=== PATIENT | male | born 1980 | race Caucasian/White ===

== ENCOUNTER 2023-12-16 10:57 | Outpatient (CLI) | payer BC, SELFPAY | END 2023-12-16 10:58 | disposition home or self-care (01) | PROVIDERS: PCP Family Medicine; Visit Provider Nurse Practitioner Family | DX: Z11.9 Encounter for screening for infectious and parasitic diseases, unspecified (principal); Z13.1 Encounter for screening for diabetes mellitus; Z13.220 Encounter for screening for lipoid disorders | CPT/HCPCS: 80061; 82947; 86704; 87340 ==

== ENCOUNTER 2024-01-27 20:32 | Emergency (ER) | payer BC, SELFPAY ==
[2024-01-27 20:43] VITALS: BP 126/79; PULSE 75; RESP 18; O2SAT 95; BMI 28.7
--- NOTE | 2024-01-27 22:06 | ED.GENADULT ---
HPI - General Adult General Date Seen: 01/27/24 Chief complaint: Laceration/Wound Stated complaint: Cut face with razor Time Seen by Provider: 01/27/24 20:46 Source: patient Mode of arrival: ambulatory Limitations: no limitations History of Present Illness HPI narrative: Patient is a 43-year-old male, generally healthy aside from rheumatoid arthritis. He notes that he was holding a utility knife near his face, trying to cut a wire. It slipped and he cut his chin on the right side. Believes his tetanus is up-to-date. Feels little numb around the wound but he thinks that is because he has been pressing on it quite hard to stop the bleeding. Related Data Home Medications Medication Instructions Recorded Confirmed folic acid 1 mg tablet 1 mg PO DAILY 12/16/23 12/16/23 hydroxychloroquine 200 mg tablet 200 mg PO BID 12/16/23 12/16/23 methotrexate sodium 2.5 mg tablet 10 mg PO QWEEK 12/16/23 12/16/23 Previous Rx's Medication Instructions Recorded albuterol sulfate 90 mcg/actuation 2 puff inhalation Q4-6H PRN 12/16/23 aerosol inhaler shortness of breath or wheezing #8.5 grams Allergies Allergy/AdvReac Type Severity Reaction Status Date / Time Penicillins Allergy Severe Systemic Verified 12/16/23 10:21 Rash PFSH [facility] Medical History Tobacco use ?Z72.0 - Tobacco use (ICD-10) Surgical History (Updated 12/14/23 @ 16:20 by Alis Grey) History of vasectomy (08/03/17) ?Z98.52 - Vasectomy status (ICD-10) Family History (Updated 12/14/23 @ 16:15 by Alis Grey) Mother Depression Uncle Heart disease High blood pressure Paternal Grandfather CHF (congestive heart failure) Social History Smoking Status: Never smoker Do you use any of these nicotine containing products: None Second hand tobacco smoke exposure: No How often do you have a drink containing alcohol: monthly or less AUDIT-C Alcohol total score: 1 Non-prescribed substance use: denies use Little interest or pleasure in doing things: not at all Feeling down, depressed, or hopeless: not at all service: No Exam Narrative: Exam Narrative: Vital signs as noted above. In general, alert, well-appearing male. ENT: On the chin there is a 3.5 cm laceration which extends deep into the fatty tissues. He has normal facial movement. Venous bleeding noted at the time of my initial exam. Const: Vital Signs, click to edit/add: Vital Signs - 24 hr 01/27/24 20:43 Pulse Rate [Left P ulse Oximeter] 75 Respiratory Rate 18 Blood Pressure [Le ft Upper Arm] 126/79 Pulse Oximetry 95 Oxygen Delivery Me thod Room Air Documenting provider has reviewed patient's vital signs: yes Course Course ED Course: Procedure note: Wound was anesthetized using xylocaine 1% with epinephrine. Explored, I do not see any injury to deeper structure, no foreign body. I initially used [address] 3 deep interrupted sutures to bring the edges together in take tension off the wound. I then placed a total of 11 superficial simple interrupted suture using 5 0 nylon ends. He tolerated this well. No immediate complication. Routine wound care, discussed keeping an ointment on this to help with healing and suture removal. Skin sutures should be removed in about 5-6 days. Return any time for signs of infection. Vital Signs Vital signs: Initial Vital Signs Pulse Rate 75 01/27/24 20:43 Respiratory Rate 18 01/27/24 20:43 Blood Pressure 126/79 01/27/24 20:43 Blood Pressure Mean 94 01/27/24 20:43 Blood Pressure Position Sitting 01/27/24 20:43 Pulse Oximetry 95 01/27/24 20:43 Oxygen Delivery Method Room Air 01/27/24 20:43 Vital Signs Pulse Rate 75 01/27/24 20:43 Respiratory Rate 18 01/27/24 20:43 Blood Pressure 126/79 01/27/24 20:43 Pulse Oximetry 95 01/27/24 20:43 Oxygen Delivery Method Room Air 01/27/24 20:43 Pulse Rate 75 01/27/24 20:43 Respiratory Rate 18 01/27/24 20:43 Blood Pressure 126/79 01/27/24 20:43 Pulse Oximetry 95 01/27/24 20:43 Oxygen Delivery Method Room Air 01/27/24 20:43 Discharge Plan Discharge Clinical Impression: Complex laceration of face Patient Disposition: Home, Self-Care Condition: Improved Instructions: Facial Laceration (ED) Additional Instructions: Removal of 11 superficial stitches in about 5-6 days. Deep stitches will dissolve. Return any time for signs of infection. Keep an ointment such as Vaseline on this several times a day to help keep stitches from getting buried in scab Prescriptions: No Action hydroxychloroquine 200 mg tablet 200 mg PO BID folic acid 1 mg tablet 1 mg PO DAILY methotrexate sodium 2.5 mg tablet 10 mg PO QWEEK albuterol sulfate 90 mcg/actuation HFA aerosol inhaler 2 puff inhalation Q4-6H PRN (Reason: shortness of breath or wheezing) Qty: 8.5 1RF Follow Up/Referrals: Babak Barlow MD [Primary Care Provider] - Stand Alone Forms: [employer] Info Instructions
--- OUTSIDE RECORDS SUMMARY | 2024-01-27 22:15 | XMS_ITS | Clinical Summary ---
Author Name Unknown Organization [facility] Address [address] [place] [id number] Care Team Providers Care Distribution Center Associate Name Role Phone Unavailable Primary Care Provider Unavailabl e Source Comments Patient records contain information from all sites at [facility]. For routine questions regarding patient records, call [phone] during business hours, M-F 8:00 AM - 5:00 PM Central Time. Record requests for emergency care only can be directed to [phone] at any time.[facility] Allergies Active Allergy Reactions Criticality Noted Date Comments Amoxicillin Rash 04/20/2011 Medications Medication Sig Dispensed Refills Start Date End Date Status albuterol (PROVENTIL HFA,VENTOLIN HFA) 90 mcg/actuation inhaler Inhale 1 puff every 4 (four) hours as needed. Shortness of breath. 04/20/2011 Active naproxen sodium (ALEVE ORAL) Take by mouth. Tablet by mouth. 01/26/2014 Active fluticasone propionate (FLOVENT HFA) 44 mcg/actuation inhaler Inhale 1 puff 2 (two) times a day. 04/20/2011 Active cetirizine HCl (ZYRTEC ORAL) Take by mouth as needed. Tablet by mouth. 01/26/2014 Active folic acid 1 mg tabletIndications: Arthritis Rheumatoid (HCC) Take 1 tablet (1 mg total) by mouth daily. 90 tablet 3 04/22/2023 04/21/2024 Active hydrOXYchloroQUINE (PLAQUENIL) 200 mg tabletIndications: Arthritis Rheumatoid (HCC) Take 2 tablets (400 mg total) by mouth daily. remember to do yearly eye exam. 180 tablet 3 04/22/2023 04/21/2024 Active methotrexate 2.5 mg tabletIndications: Arthritis Rheumatoid (HCC) Take 10 tablets (25 mg total) by mouth once a week. Remember to do blood work every 3 months. 120 tablet 3 04/22/2023 04/21/2024 Active Active Problems Problem Noted Date Diagnosed Date Arthritis Rheumatoid 09/23/2012 Family History Medical History Relation Name Comments Rheum arthritis Father destiny nice Anxiety disorder Mother melvin cook Depression Mother melvin cook Psychiatric Mother melvin cook Relation Name Status Comments Father destiny nice Mother melvin cook Social History Tobacco Use Types Packs/Day Years Used Date Smoking Tobacco: Former Cigarettes 0.3 10.3 0 09/13/1998 - 12/16/2008 Smokeless Tobacco: Former Chew Quit: 09/13/2003 Tobacco Cessation:Counseling Given: Not Answered Alcohol Use Standard Drinks/Week Comments Yes 4 (1 standard drink = 0.6 oz pur e alcohol) Humiliation, Afraid, Rape, and Kick questionnair e Answer Date Recorded Within the last year, have y ou been afraid of your partner or ex-partner? No 04/22/2023 Within the last year, have y ou been humiliated or emotionally abused in other ways by your partner or ex-partner? No Within the last year, have y ou been kicked, hit, slapped, or otherwise physically hurt by your partner or ex-partner? No 04/22/2023 Within the last year, have y ou been raped or forced to have any kind of sexual activity by your partner or ex-partner? No 04/22/2023 Social Connection and Isolat ion Panel [NHANES] Answer Date Recorded In a typical week, how many times do you talk on the phone with family, friends, or neighbors? Once a week 02/10/2022 How often do you get togethe r with friends or relatives? Once a week 02/10/2022 How often do you attend [facility] or mosque services? More than 4 times per year 02/10/2022 Do you belong to any clubs o r organizations such as pentecostal groups, unions, fraternal or athletic groups, or school groups? Yes 02/10/2022 How often do you attend meet ings of the clubs or organizations you belong to? More than 4 times per year 02/10/2022 Are you , , di vorced, , never , or living with a partner? 02/10/2022 AUDIT-C Answer Date Recorded Q1: How often do you have a drink containing alc ohol? 2-4 times a month 02/10/2022 Q2: How many drinks containi ng alcohol do you have on a typical day when you are drinking? 3 or 4 02/10/2022 Q3: How often do you have si x or more drinks on one occasion? Less than monthly 02/10/2022 Overall Financial Resource Strain (CARDIA) Answe r Date Recorded How hard is it for you to pa y for the very basics like food, housing, medical care, and heating? Not hard at all 04/22/2023 [facility] - Occupational Stress Questionnaire Answer Date Recorded Do you feel stress - tense, restless, nervous, or anxious, or unable to sleep at night because your mind is troubled all the time - these days? Not at all 02/10/2022 Exercise Vital Sign Answer Date Recorde d On average, how many days pe r week do you engage in moderate to strenuous exercise (like a brisk walk)? 3 days 04/22/2023 On average, how many minutes do you engage in exercise at this level? 30 min 04/22/2023 Hunger Vital Sign Answer Date Recorded Within the past 12 months, y ou worried that your food would run out before you got the money to buy more. Never true 04/22/20 23 Within the past 12 months, t he food you bought just didn't last and you didn't have money to get more. Never true 04/22/2023 PRAPARE - Transportation Answer Date Re corded In the past 12 months, has l ack of transportation kept you from medical appointments or from getting medications? No 04/13 In the past 12 months, has l ack of transportation kept you from meetings, work, or from getting things needed for daily living? No 04/22/2023 Nutrition Answer Date Recorded Nutrition: EVOO Fat Source No 04/22 On average, how many serving s of fruits and vegetables do you eat per day (serving size is equal to 1 cup or approximately the size of a tennis ball)? 0-2 04/22/2023 Dental Answer Date Recorded Dental: Regular Dentist Yes 02/11/20 Employment Answer Date Recorded Employment status Employed and actively working without restrictions 04/22/2023 Housing Stability Answer Date Recorded What is your living situation today? [facility] place to live 04/22/2023 Education Answer Date Recorded What is the highest level of school you have completed or the highest degree you have received? Bachelor's degree (e.g., BA, AB, BS) 12/23/2020 Sex and Gender Information Value Date Recorded Sex Assigned at Male 06/01/2018 9:28 AM CDT Gender Identity Male 06/01/2018 9:28 AM CDT Sexual Orientation Straight 06/01/2018 9: 28 AM CDT Last Filed Vital Signs Vital Sign Reading Time Taken Comments Blood Pressure 129/79 04/22/2023 10:17 AM CDT Pulse 70 04/22/2023 10:17 AM CDT Temperature 36.4 ??C (97.5 ??F) 04/22/2023 10:17 AM C DT Respiratory Rate - - Oxygen Saturation - - Inhaled Oxygen Concentration - - Weight 104 kg (229 lb 4.5 oz) 04/22/2023 10:17 A M CDT Height 188 cm (6' 2.02) 04/22/2023 10:17 AM CDT Body Mass Index 29.42 04/22/2023 10:17 AM CDT Plan of Treatment Health Maintenance Due Date Last Done Comments HIV Screening 1981 Hepatitis C Screening 1981 Lipid (Cholesterol) Screening 1981 Pneumococcal vaccine (0-64 years) (3 of 3 - PCV) 03/31/2018 03/31/2017, 03/18/2011 COVID-19 Vaccine ( - 2022-2 4 season) 2023 08/26/2021, 09/24/2020, 09/04/2020 Influenza Vaccine (#1) 2023 2, 06/11/2021, 06/26/2020, Additional history exists Depression Screening (Annual PHQ-2) 09/13/2023 Hydroxychloroquine (PLAQUENI L) Annual Exam 01/24/2024 DTaP,Tdap,and Td Vaccines (4 - Td or Tdap) 12/15/2033 12/16/2023, 03/18/2011, 12/12/1997 Hepatitis B Vaccines Completed 12/03/1998, 07/30/1998, 06/04/1998 HPV Vaccines Aged Out No longer eligi ble based on patient's age to complete this topic Additional Health Concerns Infection Onset Date Last Indicated Protective Environment 04/22/2023 3
--- OUTSIDE RECORDS SUMMARY | 2024-01-27 22:15 | XMS_ITS | Referral Summary ---
Author Name Unknown Organization [facility] Address [address] [place] [address] Care Team Providers Care Document Design Specialist Name Role Phone Unavailable Primary Care Provider Unavailabl e Source Comments Patient records contain information from all sites at [facility]. For routine questions regarding patient records, call [phone] during business hours, M-F 8:00 AM - 5:00 PM Central Time. Record requests for emergency care only can be directed to [phone] at any time.[facility] Allergies Active Allergy Reactions Criticality Noted [...] Noted Date Diagnosed Date Arthritis Rheumatoid 09/23/2012 Social History Tobacco Use Types Packs/Day Years [...] week 02/10/2022 How often do you attend chur or scientology services? More than 4 times per year 02/10/2022 Do you belong to any clubs o r organizations such as yazidism groups, unions, fraternal or athletic groups, or [...] and heating? Not hard at all 04/22/2023 [facility] - Occupational Stress [...] your living situation today? I have a [facility] place to live 04/22/2023 Education Answer Date [...] 04/22/2023 10:17 AM CDT Plan of Treatment Not on file Additional Health Concerns Infection Onset Date Last Indicated Protective Environment 04/22/2023 3
--- OUTSIDE RECORDS SUMMARY | 2024-01-27 22:15 | XMS_ITS ---
Author Name Unknown Organization [facility] Address [address] [place] [address] Care Team Providers Care Irrigation District Manager Name Role Phone Unavailable Unavailable Unavailable Surgery Details Not on file Complications Check Surgery Details section. Procedure Estimated Blood Loss Check Surgery Details section. Procedure Findings Check Surgery Details section. Procedure Specimens Taken Check Surgery Details section.
== END 2024-01-27 22:16 | disposition home or self-care (01) ==
LOC: ED 22:13
PROVIDERS: Emergency Provider Emergency Medicine
DX: S01.81XA Laceration without foreign body of other part of head, initial encounter (principal); W26.9XXA Contact with unspecified sharp object(s), initial encounter
CPT/HCPCS: 13132; 99283; 99284

== ENCOUNTER 2025-08-02 08:03 | Outpatient (CLI) | payer BC, SELFPAY | END 2025-08-02 08:04 | disposition home or self-care (01) | PROVIDERS: PCP Nurse Practitioner Family; Visit Provider Nurse Practitioner Family | DX: Z00.00 Encounter for general adult medical examination without abnormal findings (principal); Z13.0 Encounter for screening for diseases of the blood and blood-forming organs and certain disorders involving the immune mechanism | CPT/HCPCS: 80053; 80061; 85025 ==